=== PATIENT | female | born 1940 | race Caucasian/White ===

== ENCOUNTER 2017-07-30 10:34 | Observation (INO) | payer MEDICARE, BC ==
[2017-07-30] VITALS (7 sets, daily range): BP systolic 123–181; BP diastolic 55–106; BMI 26.1
[~2017-07-30] VITALS: Ht 157.5 cm; Wt 64.4 kg
[2017-07-30] MEDS ORDERED: LISINOPRIL10 MG PO (10:40)
[2017-07-30 11:26] LABS: BASOPHILS 0.4 % (0-2); EOSINOPHILS 3.8 % (0-7); HEMATOCRIT 42.6 % (36.0-48.0); HEMOGLOBIN 13.8 g/dL (12-16); IMMATURE GRANULOCYTES 0.2 % (0-5); LYMPHOCYTES 17.7 % (15-50); MCHC 32.4 g/dL (31.0-37.0); MCV 92.6 fL (80.0-100.0); MEAN PLATELET VOLUME 11.3 fL (7.4-10.4); MONOCYTES 5.6 % (2-11); NEUTROPHILS 72.3 % (40-80); RDW 12.9 % (11.5-14.5); WBC 14.1 10x3/uL (4.8-10.8)
[2017-07-30 11:33] LABS: ALBUMIN 3.5 g/dL (3.4-5.0); ALKALINE PHOSPHATASE 103 U/L (46-116); ALT (SGPT) 22 U/L (10-68); CALC OSMOLALITY 278 mosm/kg (275-300); CARBON DIOXIDE 26.3 mmol/L (21.0-32.0); CHLORIDE - SERUM 106 mmol/L (98-107); GLUCOSE 121 mg/dL (74-106); POTASSIUM - SERUM 4.3 mmol/L (3.5-5.1); PROTEIN - SERUM 7.5 g/dL (6.4-8.2); SODIUM 140 mmol/L (136-145); UREA NITROGEN 10 mg/dL (7-18); eGFR NON AFRICAN AMERICAN 57 mL/min (90-120)
[2017-07-30 11:36] LABS: PLATELET COUNT 195 10x3/uL (130-400)
[2017-07-30 11:40] LABS: CKMB 0.7 U/L (0.0-3.6); TROPONIN-I < 0.017 ng/mL (0.000-0.060)
[2017-07-30 19:38] LABS: APPEARANCE CLEAR (CLEAR); BILIRUBIN NEGATIVE (NEGATIVE); COLOR YELLOW (YELLOW); GLUCOSE NEGATIVE (NEGATIVE); KETONE NEGATIVE (NEGATIVE); NITRITE NEGATIVE (NEGATIVE); PH 5.5 (5.0-6.0); PROTEIN NEGATIVE (NEGATIVE); UROBILINOGEN NORMAL (NORMAL)
[2017-07-31] VITALS: BP 141/51
[2017-07-31 04:00] VITALS: BP 135/49
[2017-07-31 05:27] LABS: BASOPHILS 0.5 % (0-2); EOSINOPHILS 6.2 % (0-7); HEMATOCRIT 37.7 % (36.0-48.0); HEMOGLOBIN 12.2 g/dL (12-16); IMMATURE GRANULOCYTES 0.2 % (0-5); LYMPHOCYTES 20.4 % (15-50); MCH 29.7 pg (26.0-34.0); MCHC 32.4 g/dL (31.0-37.0); MCV 91.7 fL (80.0-100.0); MEAN PLATELET VOLUME 10.7 fL (7.4-10.4); MONOCYTES 7.8 % (2-11); NEUTROPHILS 64.9 % (40-80); PLATELET COUNT 193 10x3/uL (130-400); RBC 4.11 10x6/uL (4.00-5.40); RDW 12.9 % (11.5-14.5)
[2017-07-31 05:36] LABS: ANION GAP 12.9 mmol/L (8-16); CALCIUM 8.4 mg/dL (8.5-10.1); CARBON DIOXIDE 24.2 mmol/L (21.0-32.0); CREATININE - SERUM 0.9 mg/dL (0.6-1.3); POTASSIUM - SERUM 4.1 mmol/L (3.5-5.1)
[2017-07-31 05:40] LABS: WBC 9.2 10x3/uL (4.8-10.8)
[2017-07-31 08:38] VITALS: BP 165/66
[2017-07-31 12:30] VITALS: BP 139/63
[2017-07-31 13:43] VITALS: Ht 157.5 cm; Wt 64.4 kg
[2017-07-31 14:25] VITALS: BP 138/56
== END 2017-07-31 16:37 | disposition home or self-care (01) ==
LOC: D.ER 10:34 → OBSVTIME 14:19 → D.EDHOLD 14:19 → D.M2 14:29
PROVIDERS: Family Medicine
DX: R55 Syncope and collapse (principal); R19.7 Diarrhea, unspecified; I10 Essential (primary) hypertension; E88.81 Metabolic syndrome and other insulin resistance; S30.0XXA Contusion of lower back and pelvis, initial encounter; W19.XXXA Unspecified fall, initial encounter

== ENCOUNTER 2018-05-29 00:59 | Inpatient (IN) | payer MEDICARE, BC ==
[~2018-05-29] VITALS: Ht 157.5 cm; Wt 63.2 kg
[~2018-05-29 00:59] MED LIST: LISINOPRIL10 MG PO
[2018-05-29 02:12] LABS: BASOPHILS 0.3 % (0-2); EOSINOPHILS 0.7 % (0-7); HEMATOCRIT 39.7 % (36.0-48.0); IMMATURE GRANULOCYTES 0.3 % (0-5); LYMPHOCYTES 14.2 % (15-50); MCH 29.7 pg (26.0-34.0); MCHC 32.7 g/dL (31.0-37.0); MCV 90.8 fL (80.0-100.0); MEAN PLATELET VOLUME 10.7 fL (7.4-10.4); MONOCYTES 5.1 % (2-11); NEUTROPHILS 79.4 % (40-80); PLATELET COUNT 189 10x3/uL (130-400); RBC 4.37 10x6/uL (4.00-5.40); RDW 13.4 % (11.5-14.5); WBC 14.7 10x3/uL (4.8-10.8)
[2018-05-29 02:28] LABS: APTT 26.2 SECONDS (22.8-39.4); PROTIME 12.7 SECONDS (11.6-15.0)
[2018-05-29 02:31] LABS: ALBUMIN 3.6 g/dL (3.4-5.0); ANION GAP 16.1 mmol/L (8-16); BILIRUBIN - TOTAL 0.15 mg/dL (0.2-1.3); CALCIUM 8.8 mg/dL (8.5-10.1); CARBON DIOXIDE 24.6 mmol/L (21.0-32.0); POTASSIUM - SERUM 3.7 mmol/L (3.5-5.1); PROTEIN - SERUM 7.7 g/dL (6.4-8.2)
[2018-05-29 03:55] VITALS: BP 142/60; Ht 157.5 cm; Wt 63.2 kg
--- NOTE | 2018-05-29 08:16 | NUR ---
PT ALERT X 4. BREATH SOUNDS CLEAR BILAT. TELEMETRY IN PLACE. IV TO RIGHT AC, PATENT, DRESSING CLEAN DRY AND INTACT. PT REPORTING PAIN OF 2/10, CREWMAN ARMOURED PERSONNEL CARRIER M113 IN PLACE, WILL MONITOR. RIGHT LEG INTERNALLY ROTATED. BED LOW, CALL LIGHT IN REACH. NO OTHER NEEDS AT THIS TIME.
[2018-05-29 09:06] LABS: INR 1.05 (0.85-1.17); PROTIME 13.2 SECONDS (11.6-15.0)
[2018-05-29 09:50] VITALS: BP 156/72
--- NOTE | 2018-05-29 16:42 | NUR ---
COMPLETE LINEN CHANGE COMPLETE AT THIS TIME. PATIENT INCONT OF URINE.
[2018-05-29 17:22] VITALS: BP 140/73
--- NOTE | 2018-05-29 18:39 | OP ---
PATIENT NAME: CORTEZ COLLINS MEDICAL RECORD: [id number] :38 LOCATION:D.[facility] ADMISSION DATE:05/29/18 SURGEON: STEPHANIE URIBE DO DATE OF OPERATION: 05/29/2018 PROCEDURE PERFORMED: Right femur intramedullary nailing. PREOPERATIVE DIAGNOSIS: Closed right femur subtrochanteric fracture, displaced and comminuted. POSTOPERATIVE DIAGNOSIS: Closed right femur subtrochanteric fracture, displaced and comminuted. SURGEON: STEPHANIE URIBE DO INDICATIONS: Ms. Collins is a 78-year-old female who was carrying groceries yesterday. She slipped and fell onto her leg. She sustained a femur fracture and was brought into the hospital by ambulance. She was x-rayed and seen to have a subtrochanteric femur fracture that was displaced. She did not have any prior pain in the hip or injury and she was in quite a bit of pain when she was admitted, placed on a CLINICAL DOCUMENTATION CONSULTANT overnight. She came at about 1:30 in the morning and she was consented for IM nail today. She is aware of the risks and benefits including infection, bleeding, damage to nerves and vessels, need for further surgery, further fracture and continued pain as well as blood clots, pulmonary embolism, and even and she signed the consent. DESCRIPTION OF PROCEDURE: The patient was taken to the operative suite, placed in supine position, sedated and intubated. She was given 2 grams Ancef preoperatively. The patient was then put on to the [place] table. Right lower extremity was prepped and draped in sterile fashion. Reduction maneuver was tried prior to prepping and draping through fluoroscopy and was not adequate. Knowing the comminution and the location of the fracture, we decided we open and reduce it and then put the nail down. Then, the right lower extremity was prepped and draped in sterile fashion. A timeout was performed, everyone was in agreement of the correct side, site, patient, and procedure. The incision was then made on the lateral femur. We went through the IT band down to the femur. A reduction was made with the femur, butterfly fragment laterally and then the 2 other fragments 1 proximally and 1 distally. This was reduced with 2 clamps and a crutch and under the drapes and then 3 cables were placed along the fracture getting nice reduction. It was clamped down and cut. Once the fracture was reduced nicely, the incision was made just proximal to the hip. Careful dissection was made down to the trochanter. A starting point was done starting with the guide pin. Once the guidepin was in good position, the opening reamer was used and opened the femoral canal. The long pin was then put down the canal confirmed on AP and lateral to be in the femoral canal. The nail was measured to be 360. We then began reaming first starting with a 9 up to an 11 and 9 mm nail by 360 was then placed. Then, the lag screw was placed through the jig confirming good position on AP and lateral. First the guidepin and then overdrilled and then 95 x 10.5 mm lag screw was placed. Good fixation with that and then this was locked proximally after the jig was removed. Then attention was drawn distally to the most proximal locking hole and a 40-mm, 5-0 cortical screw was placed through that after getting perfect circles done and the drill hole was made through the nail. X-rays were taken in AP and lateral. Then, following the case made good reduction and the nail was in good position. The wound was then thoroughly irrigated. Large wound laterally and the wound OPERATIVE REPORT [id number] CORTEZ COLLINS proximally; wound proximal was closed with 2-0 Vicryl in inverted interrupted fashion. The IT band and the lateral incision was closed with #1 Vicryl in a [id number] fashion and then the skin 2-0 Vicryl in an inverted interrupted fashion. Distal poke hole for the locking screw was closed with 2-0 Vicryl in an interrupted fashion and then Prineo glue was placed on the skin on all the incision sites. The patient was awakened and taken to recovery at that point in stable condition. COMPLICATIONS: None. BLOOD LOSS: Approximately 600 mL. TRANSINT:[id number] Voice Confirmation ID: [id number] DOCUMENT ID: [id number] STEPHANIE URIBE DO at 1839 CC: [id number] DICTATION DATE: 05/29/18 1635 EXTERIOR WORK HELPER: 05/29/18 1817 ADM IN [place] [id number] [place] [address]
--- NOTE | 2018-05-29 18:39 | HP ---
PATIENT: CORTEZ BROWN MEDICAL RECORD: [id number] ACCOUNT: [id number] LOCATION:D.[facility] : 38 ADMISSION DATE: 05/29/18 PCP: ALAN LEAVITT HISTORY AND PHYSICAL EXAMINATION DATE OF ADMISSION: 05/29/2018 CHIEF COMPLAINT: Right hip pain. HISTORY: This is a quite healthy 78-year-old female, who somehow fell in her living room bringing in groceries. She had acute onset of right hip pain. She was brought to the ER and x-rays show a subtrochanteric femur fracture that is oblique and displaced. She is admitted to Dr. Leavitt, her primary care physician. PAST MEDICAL HISTORY: Hypertension, high cholesterol. PAST SURGICAL HISTORY: Cataract repair. HOME MEDICATIONS: Lisinopril 10 mg once a day. ALLERGIES: No known drug allergies. SOCIAL HISTORY: Retired. Lives with her . FAMILY HISTORY: Significant for hypertension. HABITS: Never smoked. No alcohol or drugs. REVIEW OF SYSTEMS: GENERAL: No major weight changes. HEENT: No particular sinus or allergy problems. RESPIRATORY: No cough, wheeze, shortness of breath. No pneumonia. CARDIAC: No history of heart disease. GASTROINTESTINAL: No diarrhea, constipation, or heartburn. GENITOURINARY: No significant problems there. MUSCULOSKELETAL: She complains of arthritic aches and pains in her knees. NEUROLOGIC: No headaches or seizures. PSYCHIATRIC: No depression or melancholia. PHYSICAL EXAMINATION: VITAL SIGNS: Temperature 97.9, pulse 81, respirations 18, blood pressure 142/60, O2 sat 95%. GENERAL: She is very pleasant, awake and alert, in no pain. She has CONTROL ENGINEER in place. She states the last time she pushed the button was at 4 a.m. when she was moved into the room. HEENT: Grossly within normal limits. NECK: Supple. No JVD or bruit. HEART: Regular rate and rhythm without murmur. LUNGS: Clear. ABDOMEN: Soft. EXTREMITIES: No edema. She does have some tenderness to palpate the right hip area. LABORATORY DATA: EKG shows normal sinus rhythm with a rate of 75. CBC showed a HISTORY AND PHYSICAL [id number] CORTEZ BROWN white count of 14,700, hemoglobin 13, hematocrit 39.7. INR 1.05. Basic metabolic panel is all normal. Liver functions are normal. X-ray shows fracture as above. ASSESSMENT: 1. Subtrochanteric right femur fracture. 2. Hypertension. 3. High cholesterol. PLAN: Dr. Driscoll has already seen her and his help is greatly appreciated. The patient is okayed for surgery later today. TRANSINT:[id number] Voice Confirmation ID: [id number] DOCUMENT ID: [id number] MARY SNYDER MD at 1839 CC: [id number] DICTATION DATE: 05/29/18935 POWER SHOVEL MECHANIC: 05/29/18 1016 ADM IN [facility] [address] [place] [address]
--- NOTE | 2018-05-29 19:35 | NUR ---
LYING IN BED. DROWSY FROM ANESTHESIA. ORIENTED X4. DENIES PAIN. RESP SHALLOW, NONLABORED. STATES THROAT IS IRRITATED AND CLEARS IT OFTEN. ENCOURAGED TO COUGH AND DEEP BREATHE. SCDS IN USE BILAT. BBS CTA. DRSG TO RT HIP IS C/D/I. PEDAL PULSES STRONG BILAT. NO EDEMA NOTED. BRUISE NOTED TO RT HAND. O2 @ 3L/NC. 1/2 NS @ 50 ML/HR INFUSING IN RT FOREARM. SALINE LOCK NOTED TO LT HAND. TELEMETRY SHOWS SR WITH RATE OF 96. SR ELEVATED X2. CL IN REACH. BED ALARM IN USE FOR PT SAFETY.
[2018-05-29 20:32] VITALS: BP 160/79
--- NOTE | 2018-05-30 | NUR ---
ASSISTED WITH BED INMAN TO VOID. BECAME NAUSEATED. MEDICATED WITH ZOFRAN ORDERED. NO VOMITING NOTED.
--- NOTE | 2018-05-30 00:20 | NUR ---
REQUESTED PAIN MED. MEDICATED WITH NORCO ORDERED FOR C/O PAIN IN RT HIP RATING 6. CL IN REACH
[2018-05-30 01:01] VITALS: BP 141/75
--- NOTE | 2018-05-30 04:30 | NUR ---
MEDICATED FOR C/O PAIN IN RT HIP WITH NORCO 10MG ORDERED. CL IN REACH.
[2018-05-30 06:25] LABS: BASOPHILS 0.3 % (0-2); EOSINOPHILS 0.2 % (0-7); IMMATURE GRANULOCYTES 0.2 % (0-5); LYMPHOCYTES 23.6 % (15-50); MCH 29.5 pg (26.0-34.0); MCHC 32.7 g/dL (31.0-37.0); MCV 90.1 fL (80.0-100.0); MEAN PLATELET VOLUME 10.7 fL (7.4-10.4); MONOCYTES 13.2 % (2-11); NEUTROPHILS 62.5 % (40-80); PLATELET COUNT 172 10x3/uL (130-400); RDW 13.7 % (11.5-14.5); WBC 11.2 10x3/uL (4.8-10.8)
[2018-05-30 06:38] LABS: HEMATOCRIT 27.2 % (36.0-48.0); HEMOGLOBIN 8.9 g/dL (12-16); RBC 3.02 10x6/uL (4.00-5.40)
[2018-05-30 06:52] LABS: ANION GAP 12.6 mmol/L (8-16); BILIRUBIN - TOTAL 0.27 mg/dL (0.2-1.3); CALCIUM 7.5 mg/dL (8.5-10.1); CARBON DIOXIDE 24.4 mmol/L (21.0-32.0)
[2018-05-30 06:55] LABS: ALBUMIN 2.5 g/dL (3.4-5.0)
--- NOTE | 2018-05-30 08:23 | NUR ---
PT ALERT X 4. BREATH SOUNDS CLEAR BILAT. TELEMETRY IN PLACE. IV TO RIGHT AC, PATENT, DRESSING CLEAN DRY AND INTACT. IV TO LEFT HAND, SALINE LOCKED. DRESSING TO RIGHT HIP, CLEAN DRY AND INTACT. PT REPORTING PAIN OF 6/10, WILL MONITOR. BED LOW, CALL LIGHT IN REACH. NO OTHER NEEDS AT THIS TIME.
[2018-05-30 10:12] VITALS: BP 160/61
[2018-05-30 13:03] LABS: APPEARANCE CLEAR (CLEAR); BACTERIA MODERATE /hpf (NONE SEEN); BILIRUBIN NEGATIVE (NEGATIVE); COLOR STRAW (YELLOW); GLUCOSE NEGATIVE (NEGATIVE); KETONE NEGATIVE (NEGATIVE); MUCUS <1+ /lpf (NONE SEEN); NITRITE NEGATIVE (NEGATIVE); PROTEIN TRACE mg/dL (NEGATIVE); RED CELLS - URINE 0-5 /hpf (0-5); UROBILINOGEN NORMAL (NORMAL)
[2018-05-30 14:37] VITALS: BP 119/54
[2018-05-30 18:17] VITALS: BP 129/57
[2018-05-30 20:00] VITALS: BP 132/53
--- NOTE | 2018-05-30 20:00 | NUR ---
LYING IN BED. ALERT AND ORIENTED X4. RESP EVEN AND NONLABORED. BBS CTA, SHALLOW. ENCOURAGED TO COUGH AND DEEP BREATHE. SCDS IN USE BILAT. PEDAL PULSES STRONG BILAT. DRSG NOTED TO RT HIP IS C/D/I. BRUISES NOTED TO BUE. TELEMETRY SHOWS ST WITH RATE OF 120. 1/2 NS @ 50 ML/HR INFUSING IN LT HAND WITHOUT DIFF. SALINE LOCK NOTED TO LT HAND. NO EDEMA NOTED. SR ELEVATED X2. CL IN REACH.
--- NOTE | 2018-05-30 20:50 | NUR ---
MEDICATED WITH NORCO FOR C/O HIP PAIN. CL IN REACH.
[2018-05-31] VITALS (7 sets, daily range): BP systolic 113–142; BP diastolic 37–70
--- NOTE | 2018-05-31 02:17 | NUR ---
HAS RESTED WELL TONIGHT. NO DISTRESS. CL IN REACH.
--- NOTE | 2018-05-31 06:28 | NUR ---
BED BATH GIVEN AND COMPLETE LINEN CHANGE PERFORMED AT THIS TIME.
[2018-05-31 08:04] LABS: HEMATOCRIT 23.3 % (36.0-48.0); HEMOGLOBIN 7.8 g/dL (12-16); MCH 29.9 pg (26.0-34.0); MCHC 33.5 g/dL (31.0-37.0); MCV 89.3 fL (80.0-100.0); MEAN PLATELET VOLUME 10.7 fL (7.4-10.4); RBC 2.61 10x6/uL (4.00-5.40); RDW 13.8 % (11.5-14.5); WBC 11.8 10x3/uL (4.8-10.8)
--- NOTE | 2018-05-31 10:02 | NUR ---
1 UNIT PRBC TRANSFUSION INITIATED. SEE TRANSFUSION CARD FOR VITALS. PRBC VERIFIED WITH DARIANA BOUCHER LPN AT BEDSIDE. PT IS AAO X 4. RESPIRATIONS ARE EVEN AND UNLABORED. BED IS IN THE LOWEST POSITION. CALL LIGHT AND BEDSIDE TABLE ARE WITHIN REACH. BED ALARM IS ON AND WORKING. SCDS ARE ON. PT REPORTS PRESENCE OF PAIN TO RIGHT LOWER EXTREMITY THIGH AREA. PT DENIES NEEDS AT THIS TIME. PT DENIES PRESENCE OF N/V AT THIS TIME. WILL CONT TO CLOSELY MONITOR. WILL STAY IN ROOM FOR FIRST 15 MINUTES OF TRANSFUSION TO ASSESS.
--- NOTE | 2018-05-31 14:03 | NUR ---
SECOND UNIT OF PRBC TRANSFUSION INITITED. PT IS AAO X 4. VSS. SEE TRANSFUSION CARD. BED ALARM IS ON AND WORKING. CALL LIGHT IS WITHIN REACH. BED SIDE TABLE IS WITHIN REACH. BED IS IN THE LOWEST POSITION. SIDERAILS X 2. WILL STAY IN ROOM AND MONITOR. CLOSELY FOR NEXT 15 MINUTES.
--- NOTE | 2018-05-31 16:24 | NUR ---
PRBC TRANSFUSION IS COMPLETE. VSS. PT IS AAO X 4. SEE TRANSFUSION CARD FOR VITALS. BED IS IN THE LOWEST POSITION. CALL LIGHT AND BEDSIDE TABLE ARE WITHIN REACH. WILL CONT TO MONITOR.
--- NOTE | 2018-05-31 20:48 | NUR ---
PT ALERT X 4. BREATH SOUNDS CLEAR BILAT. TELEMETRY IN PLACE. IV TO LEFT HAND, PATENT, DRESSING CLEAN DRY AND INTACT. IV TO RIGHT AC, SALINE LOCKED. PT REPORTING PAIN OF 6/10, MEDICATED PER ORDERS, WILL MONITOR. DRESSING TO RIGHT HIP CLEAN DRY AND INTACT. SCD'S IN PLACE. BED LOW, CALL LIGHT IN REACH. NO OTHER NEEDS AT THIS TIME.
--- NOTE | 2018-06-01 01:39 | NUR ---
PT SLEEPING AT THIS TIME.
[2018-06-01 04:00] VITALS: BP 150/67
[2018-06-01 05:32] LABS: BASOPHILS 0.3 % (0-2); EOSINOPHILS 4.1 % (0-7); IMMATURE GRANULOCYTES 0.3 % (0-5); LYMPHOCYTES 19.6 % (15-50); MCH 30.5 pg (26.0-34.0); MCV 89.8 fL (80.0-100.0); MEAN PLATELET VOLUME 11.1 fL (7.4-10.4); NEUTROPHILS 64.7 % (40-80); PLATELET COUNT 168 10x3/uL (130-400); RDW 13.7 % (11.5-14.5); WBC 11.3 10x3/uL (4.8-10.8)
[2018-06-01 06:03] LABS: HEMATOCRIT 31.8 % (36.0-48.0); HEMOGLOBIN 10.8 g/dL (12-16); RBC 3.54 10x6/uL (4.00-5.40)
--- NOTE | 2018-06-01 07:43 | NUR ---
PT RESTING IN BED. REPORTS PAIN 5/10 AT THIS TIME TO RIGHT HIP INCISIONAL SITE AND BLADDER AREA. DISCUSSED NEED FOR PAIN MEDICATIONS. REPORTS THAT IT IS NEEDED AT THIS TIME. REPORTS NAUSEA, ALSO REQUESTING MEDICATION FOR NAUSEA AT THIS TIME. INSTRUCTED THAT MEDS WOULD BE ADMINISTERED PER MD ORDERS. DRESSING TO RIGHT HIP C/D/I. DENIES FURTHER NEEDS AT THIS TIME. CL WITHIN REACH. ENCOURAGED TO CALL WITH NEEDS. CONTINUE POC
[2018-06-01 08:27] VITALS: BP 158/70
[2018-06-01 12:45] VITALS: BP 155/53
--- NOTE | 2018-06-01 14:59 | NUR ---
DRESSING CHANGE TO RIGHT UPPER POSTERIOR LEG. REMOVED POST OP DRESSING. DRESSING C/D/I, SCANT AMOUNT OF DRIED BLOODY DRAINAGE NOTED TO INCICISION ABOVE KNEE. MEPILEX AG APPLIED TO INCISIONS X 3. PT FRITZ WELL
--- NOTE | 2018-06-01 16:16 | MORECARE ---
CASE MANAGEMENT DISCHARGE SUMMARY PATIENT: CORTEZ BROWN UNIT: [id number] ADM DATE: 05/29/18 AGE: 78 : 39 SEX: F ROOM/BED: D.2206 AUTHOR: HOWARD,DOC PHYSICIAN: REFERRING PHYSICIAN: ALAN LEAVITT MD DATE OF SERVICE: 06/01/18 Discharge Plan Patient Name: CORTEZ BROWN Facility: [facility]:[place] : 1940 Planned Disposition: Inpatient Rehab Anticipated Discharge Date: Discharge Date: Expected LOS: Initial Reviewer: [email or web address] Initial Review Date: 05/29/2018 Generated: 06/01/18 5:16 pm Comments DCP- Discharge Planning Updated by [email or web address]: Anna Epstein on 06/01/18 3:[address] Patient Name: CORTEZ BROWN Admission Status: ER Accout number: [id number] Admission Date: 05-29-2018 : 1940 Admission Diagnosis:UNSP FRACTURE OF RIGHT FEMUR, INIT FOR CLOS FX Attending: ALAN LEAVITT Current LOS: 3 Anticipated DC Date: Planned Disposition: Inpatient Rehab Primary Insurance: MEDICARE A & B Discharge Planning Comments: CM met with patient to complete initial dc planning assessment. CM educated patient on the CM role and verbal consent given by patient to complete assessment. Patient lives at home with her . At discharge patient plans to go to [facility] inpatient rehab at [facility] and feels this is a safe discharge. CM discussed availability of home health, rehab services, and medical equipment. Patient does not have any DME at this time and will need a walker and a BSC. IMM served and explained. Will send the referral to [facility], Spoke with Zayra. CM will continue to follow and will assist as needed with dc plans/needs. Loom Changer: Anna Epstein DCPIA - Discharge Planning Initial Assessment Updated by [email or web address]: Anna Epstein on 06/01/18 4:09 pm * Is the patient Alert and Oriented? Yes * How many steps to enter\exit or inside your home? Ramp * PCP Amor * Pharm[facility] * Preadmission Environment Home with Family * ADLs Independent * Equipment None * List name and contact numbers for known caregivers / representatives who currently or will assist patient after discharge: Son () [phone] * Verbal permission to speak to the caregivers and representatives has been obtained from the patient. N/A * Community resources currently utilized None * Additional services required to return to the preadmission environment? Yes * Can the patient safely return to the preadmission environment? No * Has this patient been hospitalized within the prior 30 days at any hospital? No Coverage Notice Reviewer: [email or web address] Diego Epstein Notice Issued Date-Time: 06/01/2018 15:30 Notice Type: IM Discharge Notice Notice Delivered To: Patient Relationship to Patient: Extension Division Director Name: Delivery Method: HAND - Hand Delivered Temi Days: Prior Verbal Notification: Recipient Understood Notice: Yes Recipient Signature: Yes Med Rec Note Co-signed by Attending: Coverage Notice Comment: Patient Name: CORTEZ BROWN Page [id number] at 1616 All edits/amendments must be made on the electronic document DICTATION DATE: 06/01/181614 FUNERAL DIRECTOR'S ASSISTANT: JOSÉ MIGUEL 06/01/18 161 RPT#: [id number] DC DATE: STATUS: ADM IN [facility] [address] [place] [address] END OF REPORT
--- NOTE | 2018-06-01 16:24 | MORECARE ---
CASE MANAGEMENT DISCHARGE SUMMARY PATIENT: CORTEZ BROWN UNIT: [id number] ADM DATE: 05/29/18 AGE: 78 : 39 SEX: F ROOM/BED: D.2206 AUTHOR: HOWARD,DOC PHYSICIAN: REFERRING PHYSICIAN: ALAN LEAVITT MD DATE OF SERVICE: 06/01/18 Discharge Plan Patient Name: CORTEZ BROWN Facility: [facility]:[place] : 1940 Planned Disposition: Inpatient Rehab Anticipated Discharge Date: Discharge Date: Expected LOS: Initial Reviewer: [email or web address] Initial Review Date: 05/29/2018 Generated: 06/01/18 5:24 pm Comments DCP- Discharge Planning Updated by [email or web address]: Anna Epstein on 06/01/18 3:[address] Patient Name: CORTEZ BROWN Admission Status: ER Accout number: [id number] Admission Date: 05-29-2018 : 1940 Admission Diagnosis:UNSP FRACTURE OF RIGHT FEMUR, INIT FOR CLOS FX Attending: ALAN LEAVITT Current LOS: 3 Anticipated DC Date: Planned Disposition: Inpatient Rehab Primary Insurance: MEDICARE A & B Discharge Planning Comments: CM met with patient to complete initial dc planning assessment. CM educated patient on the CM role and verbal consent given by patient to complete assessment. Patient lives at home with her . At discharge patient plans to go to [facility] inpatient rehab at [facility] and feels this is a safe discharge. CM discussed availability of home health, rehab services, and medical equipment. Patient does not have any DME at this time and will need a walker and a BSC. IMM served and explained. Will send the referral to [facility], Spoke with Zayra. CM will continue to follow and will assist as needed with dc plans/needs. Communication Electronic Technician: Anna Epstein DCPIA - Discharge Planning Initial Assessment Updated by [email or web address]: Anna Epstein on 06/01/18 4:09 pm * Is the patient Alert and Oriented? Yes * How many steps to enter\exit or inside your home? Ramp * PCP Amor * [facility] * Preadmission Environment Home with Family * ADLs Independent * Equipment None * List name and contact numbers for known caregivers / representatives who currently or will assist patient after discharge: Son () [phone] * Verbal permission to speak to the caregivers and representatives has been obtained from the patient. N/A * Community resources currently utilized None * Additional services required to return to the preadmission environment? Yes * Can the patient safely return to the preadmission environment? No * Has this patient been hospitalized within the prior 30 days at any hospital? No External Providers External Provider: [facility] Contact Date: Service Request Date: Service Type: Resolution: Reviewer: Comments: Coverage Notice Reviewer: [email or web address] Diego Epstein Notice Issued Date-Time: 06/01/2018 15:30 Notice Type: IM Discharge Notice Notice Delivered To: Patient Relationship to Patient: Unit Educator Name: Delivery Method: HAND - Hand Delivered Temi Days: Prior Verbal Notification: Recipient Understood Notice: Yes Recipient Signature: Yes Med Rec Note Co-signed by Attending: Coverage Notice Comment: Last DP export: 06/01/18 3:16 pm Patient Name: CORTEZ BROWN Page [id number] at 1624 All edits/amendments must be made on the electronic document DICTATION DATE: 06/01/181622 SCROLL ASSEMBLER: JOSÉ MIGUEL 06/01/181622 RPT#: [id number] DC DATE: STATUS: ADM IN [facility] [address] [place] [address] END OF REPORT
[2018-06-01 16:45] VITALS: BP 132/55
[2018-06-01 20:00] VITALS: BP 153/57
--- NOTE | 2018-06-01 21:00 | NUR ---
PATIENT RESITNG QUEITLY.NO COMPLAINTS VOICED.IV TO LEFT HAND INTACT WITHOUT REDNESS OR EDEMA NOTED. DRESSING TO RIGHT HIP INTACT WITHOUT DRAINAGE NOTED. UPPER DRESSING TO RIGHT HIP ALMOST OFF. REPLACED WITH MEPELLIX DRSG. INCONTINENT OF URINE. COMPLETE LINEN DAILY WITH BED BATH GIVEN. CL IN REACH
[2018-06-02 04:00] VITALS: BP 153/76
--- NOTE | 2018-06-02 04:25 | NUR ---
I have reviewed this patient and I concur with the Shift Assessment completed by the Licensed Practical Nurse today this shift.
[2018-06-02 06:06] LABS: BASOPHILS 0.3 % (0-2); EOSINOPHILS 8.9 % (0-7); HEMATOCRIT 29.6 % (36.0-48.0); HEMOGLOBIN 9.9 g/dL (12-16); IMMATURE GRANULOCYTES 0.3 % (0-5); LYMPHOCYTES 19.6 % (15-50); MCH 30.2 pg (26.0-34.0); MCHC 33.4 g/dL (31.0-37.0); MCV 90.2 fL (80.0-100.0); MEAN PLATELET VOLUME 10.5 fL (7.4-10.4); MONOCYTES 11.8 % (2-11); NEUTROPHILS 59.1 % (40-80); RBC 3.28 10x6/uL (4.00-5.40); RDW 13.9 % (11.5-14.5); WBC 10.2 10x3/uL (4.8-10.8)
[2018-06-02 06:08] LABS: PLATELET COUNT 209 10x3/uL (130-400)
[2018-06-02 09:41] VITALS: BP 160/70
--- NOTE | 2018-06-02 10:18 | NUR ---
MORNING ASSESSMENT COMPELTE. SEE ASSESSMENT FLOWSHEET FOR FURTHER DETIALS. PT LYING IN BED AAO X4 TO PERSON, PLACE, TIME, AND SITUATION. DENIES NEEDS AT THIS TIME. CL IN REACH. SIDE RAILS UP X3 FOR PT SAEFTY. BED IN LOWEST POSITION.
[2018-06-02] MEDS ORDERED: NORCO-10 PO (13:17)
--- NOTE | 2018-06-02 14:06 | MORECARE ---
CASE MANAGEMENT DISCHARGE SUMMARY PATIENT: CORTEZ BROWN UNIT: [id number] ADM DATE: 05/29/18 AGE: 78 : 39 SEX: F ROOM/BED: D.2206 AUTHOR: HOWARD,DOC PHYSICIAN: REFERRING PHYSICIAN: ALAN LEAVITT MD DATE OF SERVICE: 06/02/18 Discharge Plan Patient Name: CORTEZ BROWN Facility: [facility]:[place] : 1940 Planned Disposition: Inpatient Rehab Anticipated Discharge Date: Discharge Date: Expected LOS: Initial Reviewer: [email or web address] Initial Review Date: 05/29/2018 Generated: 06/02/18 3:06 pm Comments DCP- Discharge Planning Updated by [email or web address]: Anna Epstein on 06/02/18 1:[address] PATIENT WILL BE DISCHARGING TO INPATIENT REHAB AT [facility]. THEY WILL BE TRANSPORTING THE PATIENT VIA THEIR TRANSPORTATION DCP- Discharge Planning Updated by [email or web address]: Anna Epstein on 06/01/18 3:[address] Patient Name: CORTEZ BROWN Admission Status: ER Accout number: [id number] Admission Date: 05-29-2018 : 1940 Admission Diagnosis:UNSP FRACTURE OF RIGHT FEMUR, INIT FOR CLOS FX Attending: ALAN LEAVITT Current LOS: 3 Anticipated DC Date: Planned Disposition: Inpatient Rehab Primary Insurance: MEDICARE A & B Discharge Planning Comments: CM met with patient to complete initial dc planning assessment. CM educated patient on the CM role and verbal consent given by patient to complete assessment. Patient lives at home with her . At discharge patient plans to go to [facility] inpatient rehab at [facility] and feels this is a safe discharge. CM discussed availability of home health, rehab services, and medical equipment. Patient does not have any DME at this time and will need a walker and a BSC. IMM served and explained. Will send the referral to [facility], Spoke with Zayra. CM will continue to follow and will assist as needed with dc plans/needs. Fire Suppression Captain: Anna Epstein DCPIA - Discharge Planning Initial Assessment Updated by [email or web address]: Anna Epstein on 06/01/18 4:09 pm * Is the patient Alert and Oriented? Yes * How many steps to enter\exit or inside your home? Ramp * PCP Amor * [facility] * Preadmission Environment Home with Family * ADLs Independent * Equipment None * List name and contact numbers for known caregivers / representatives who currently or will assist patient after discharge: Son () [phone] * Verbal permission to speak to the caregivers and representatives has been obtained from the patient. N/A * Community resources currently utilized None * Additional services required to return to the preadmission environment? Yes * Can the patient safely return to the preadmission environment? No * Has this patient been hospitalized within the prior 30 days at any hospital? No Coverage Notice Reviewer: [id number] Diego Epstein Notice Issued Date-Time: 06/01/2018 15:30 Notice Type: IM Discharge Notice Notice Delivered To: Patient Relationship to Patient: Director Life Name: Delivery Method: HAND - Hand Delivered Temi Days: Prior Verbal Notification: Recipient Understood Notice: Yes Recipient Signature: Yes Med Rec Note Co-signed by Attending: Coverage Notice Comment: Last DP export: 06/01/18 3:24 pm Patient Name: CORTEZ BROWN Page 11627 at 1406 All edits/amendments must be made on the electronic document DICTATION DATE: 06/02/181405 CAREER SERVICES REPRESENTATIVE: JOSÉ MIGUEL 06/02/181405 RPT#: [id number] DC DATE: STATUS: ADM IN [facility] [address] [place] [address] END OF REPORT
[2018-06-02 15:09] VITALS: BP 122/52
--- NOTE | 2018-06-02 15:21 | NUR ---
WENT OVER ALL D/C INSTRUCTIONS. PT STATES UNDERSTANDING. CHANGED DRSG TO R HIP. INCISION CLEAN AND DRY. DENIES FURTHER NEEDS. LEFT WITH ALL PERSONAL BELONGINGS
== END 2018-06-02 15:44 | DRG 481 ==
LOC: D.ER 00:59 → D.MS 02:44
PROVIDERS: Family Medicine; Orthopaedic Surgery; ADMIT Family Medicine; ATTEND Family Medicine
PROC: 0QH606Z Insertion of Intramedullary Internal Fixation Device into Right Upper Femur, Open Approach (ICD-10-PCS; principal; 2018-05-29 12:30)
DX: S72.21XA Displaced subtrochanteric fracture of right femur, initial encounter for closed fracture (principal); D62 Acute posthemorrhagic anemia; N39.0 Urinary tract infection, site not specified; W19.XXXA Unspecified fall, initial encounter; I10 Essential (primary) hypertension

== ENCOUNTER 2018-10-26 19:27 | Emergency (ER) | payer MEDICARE, BC ==
[~2018-10-26] VITALS: Ht 157.5 cm; Wt 59.1 kg
[~2018-10-26 19:27] MED LIST changes: +NORCO-10 PO
[2018-10-26 19:37] VITALS: Ht 157.5 cm; Wt 59.1 kg
[2018-10-26 20:51] LABS: BASOPHILS 0.2 % (0-2); EOSINOPHILS 1.7 % (0-7); HEMATOCRIT 38.4 % (36.0-48.0); HEMOGLOBIN 12.9 g/dL (12-16); IMMATURE GRANULOCYTES 0.2 % (0-5); MCH 29.8 pg (26.0-34.0); MCHC 33.6 g/dL (31.0-37.0); MCV 88.7 fL (80.0-100.0); MONOCYTES 5.9 % (2-11); PLATELET COUNT 225 10x3/uL (130-400); RBC 4.33 10x6/uL (4.00-5.40); RDW 13.3 % (11.5-14.5); WBC 13.3 10x3/uL (4.8-10.8)
[2018-10-26 20:56] LABS: ALBUMIN 3.5 g/dL (3.4-5.0); ALKALINE PHOSPHATASE 123 U/L (46-116); ALT (SGPT) 22 U/L (10-68); BILIRUBIN - TOTAL 0.33 mg/dL (0.2-1.3); CALC OSMOLALITY 277 mosm/kg (275-300); CALCIUM 9.2 mg/dL (8.5-10.1); CARBON DIOXIDE 27.4 mmol/L (21.0-32.0); CHLORIDE - SERUM 101 mmol/L (98-107); CREATININE - SERUM 0.8 mg/dL (0.6-1.3); GLUCOSE 123 mg/dL (74-106); POTASSIUM - SERUM 4.3 mmol/L (3.5-5.1); SODIUM 137 mmol/L (136-145); UREA NITROGEN 21 mg/dL (7-18); eGFR NON AFRICAN AMERICAN 73 mL/min (90-120)
[2018-10-26 21:08] LABS: CKMB 0.9 U/L (0.0-3.6); CREATINE KINASE 66 UL (21-215)
[2018-10-26 21:09] LABS: TROPONIN-I < 0.017 ng/mL (0.000-0.060)
[2018-10-26 22:11] LABS: APPEARANCE CLEAR (CLEAR); BILIRUBIN NEGATIVE (NEGATIVE); COLOR YELLOW (YELLOW); GLUCOSE NEGATIVE (NEGATIVE); KETONE NEGATIVE (NEGATIVE); NITRITE NEGATIVE (NEGATIVE); PROTEIN NEGATIVE (NEGATIVE); SPECIFIC GRAVITY 1.015 (1.005-1.020); UROBILINOGEN NORMAL (NORMAL)
[2018-10-26 22:12] LABS: RED CELLS - URINE OCC /hpf (0-5); WHITE CELLS - URINE OCC /hpf (0-5)
[2018-10-26 23:00] VITALS: BP 149/82
== END 2018-10-26 23:26 | disposition home or self-care (01) ==
LOC: D.ER 19:27
PROVIDERS: Emergency Medicine
DX: R55 Syncope and collapse (principal)